=== PATIENT | male | born 1995 ===

== ENCOUNTER → 2022-12-18 | Outpatient (REF) | payer SELFPAY ==
[2022-12-18 18:35] LABS: SEMEN APPEARANCE OPAQUE (OPAQUE); SEMEN VISCOSITY LIQUID (LIQUID); SEMEN VOLUME 2.4 ml (2.0-5.0); SEMEN pH 8.5 (7.0-8.0); WBC CONCENTRATION <=1 M/ml (<=1 M/ml)
[2022-12-18 18:40] LABS: SPERM CONCENTRATION 126.3 M/ml (>=15.0)
== END ==
LOC: M LAB REF 18:23
PROVIDERS: ATTEND Physician Assistant
DX: Z31.41 Encounter for fertility testing (principal)